=== PATIENT | male | born 1990 | race Caucasian/White ===

== ENCOUNTER 2017-10-11 12:22 | Emergency (ER) | payer SELFPAY ==
[~2017-10-11] VITALS: Ht 177.8 cm; Wt 90.7 kg
== END 2017-10-11 14:32 | disposition home or self-care (01) ==
LOC: ER 12:22
DX: M25.511 Pain in right shoulder (principal); Z98.890 Other specified postprocedural states
CPT/HCPCS: 73030; 99283

== ENCOUNTER 2018-05-27 16:43 | Emergency (ER) | payer OTHER ==
[~2018-05-27] VITALS: Ht 177.8 cm; Wt 83.9 kg
== END 2018-05-27 20:37 | disposition home or self-care (01) ==
LOC: ER 16:43
DX: S61.213A Laceration without foreign body of left middle finger without damage to nail, initial encounter (principal); W26.8XXA Contact with other sharp object(s), not elsewhere classified, initial encounter; F17.200 Nicotine dependence, unspecified, uncomplicated
CPT/HCPCS: 12001; 73140; 99283-25

== ENCOUNTER 2018-06-04 09:39 | Emergency (ER) | payer OTHER ==
[~2018-06-04] VITALS: Ht 177.8 cm; Wt 83.9 kg
[2018-06-04] MEDS ORDERED: CEPH500 PO (10:26)
== END 2018-06-04 10:33 | disposition home or self-care (01) ==
LOC: ER 09:39
DX: S61.213D Laceration without foreign body of left middle finger without damage to nail, subsequent encounter (principal); W26.8XXD Contact with other sharp object(s), not elsewhere classified, subsequent encounter; F17.200 Nicotine dependence, unspecified, uncomplicated

== ENCOUNTER 2021-01-09 06:29 | Emergency (ER) | payer SELFPAY ==
[~2021-01-09] VITALS: Ht 177.8 cm; Wt 93.0 kg
[~2021-01-09 06:29] MED LIST: CEPH500 PO
[2021-01-09] MEDS ORDERED: ACETAMINOPHEN500 MG PO (07:08)
[2021-01-09] MEDS ORDERED: Amoxicillin500 MG PO (07:08)
== END 2021-01-09 07:31 | disposition home or self-care (01) ==
LOC: ER 06:29
DX: S61.412A Laceration without foreign body of left hand, initial encounter (principal); F17.210 Nicotine dependence, cigarettes, uncomplicated; V47.5XXA Car driver injured in collision with fixed or stationary object in traffic accident, initial encounter; Y92.410 Unspecified street and highway as the place of occurrence of the external cause
CPT/HCPCS: 12011; 99284-25; A9270